=== PATIENT | female | born 1975 | race Caucasian/White ===

== ENCOUNTER 2019-07-13 06:43 | Observation (INO) | payer BC ==
[~2019-07-13] VITALS: Ht 177.8 cm; Wt 106.0 kg
[2019-07-14 12:40] VITALS: BP 119/79
== END 2019-07-14 13:05 | disposition home or self-care (01) ==
LOC: OUT 06:43 → 4NOR 10:57 → OUT 11:09 → DCLOUNGE 07-14 12:55
PROVIDERS: ADMIT Thoracic Surgery (Cardiothoracic Vascular Surgery); ATTEND Thoracic Surgery (Cardiothoracic Vascular Surgery)
DX: K44.9 Diaphragmatic hernia without obstruction or gangrene (principal); K21.9 Gastro-esophageal reflux disease without esophagitis; K80.10 Calculus of gallbladder with chronic cholecystitis without obstruction; F32.9 Major depressive disorder, single episode, unspecified; Z79.899 Other long term (current) drug therapy
CPT/HCPCS: 43282; 47562; 81025; 88304; 96372; 96374; 96375; 96376; G0378; J0330; J0690; J1100; J1650; J1885; J2250; J2405; J2704; J3010; J3490; J7120; Q4116